=== PATIENT | male | born 1965 | race Caucasian/White ===

== ENCOUNTER 2018-11-26 08:08 | Emergency (ER) | payer SELFPAY ==
[2018-11-26] MEDS ORDERED: Ibuprofen 800 MG TAB ONE (08:35)
[2018-11-26] MEDS ORDERED: traMADol HCl 50 MG TAB ONE (08:35)
--- NOTE | 2018-11-26 12:11 | RAD ---
RIGHT HEEL 2 VIEWS: DATE: 11/26/2018. FINDINGS: The axial view suggests a fracture line through the posterior part of the calcaneus, medial side. Th ere does not appear to be substantial displacement. I cannot tell from the images if this is new or old. This should be correlated with the exact site of pain. IMPRESSION: Calcaneal fracture. CODE T POS: HOME
== END 2018-11-26 09:05 | disposition home or self-care (01) ==
LOC: BURERS 08:08
DX: S80.12XA Contusion of left lower leg, initial encounter (principal); S80.212A Abrasion, left knee, initial encounter; M76.62 Achilles tendinitis, left leg; I10 Essential (primary) hypertension; F32.9 Major depressive disorder, single episode, unspecified; F17.210 Nicotine dependence, cigarettes, uncomplicated; Y00.XXXA Assault by blunt object, initial encounter
CPT/HCPCS: 29515

== ENCOUNTER 2020-12-26 10:07 | Emergency (ER) | payer SELFPAY | END 2020-12-26 11:00 | disposition home or self-care (01) | LOC: BURERS 10:07 | DX: S01.81XA Laceration without foreign body of other part of head, initial encounter (principal); S80.211A Abrasion, right knee, initial encounter; Y04.8XXA Assault by other bodily force, initial encounter; I10 Essential (primary) hypertension; F17.210 Nicotine dependence, cigarettes, uncomplicated | CPT/HCPCS: 70450 ==